=== PATIENT | female | born 1960 | race Caucasian/White ===

== ENCOUNTER 2017-07-07 14:42 | Emergency (ER) | payer SELFPAY ==
--- NOTE | 2017-07-07 16:06 | C.PDOC ---
History Of Present Illness 56 year old female presents to the ED with complaints of increased swelling and tenderness to the right labia for one week. Patient was seen in the clinic today and referred to the ER. She denies dysuria, hematuria, vaginal bleeding or discharge. Time Seen by Provider: 07/07/17 15:13 Chief Complaint (Nursing): Abnormal Skin Integrity History Per: Patient History/Exam Limitations: no limitations Onset/Duration Of Symptoms: Days (1 week ) Current Symptoms Are (Timing): Still Present Quality Of Symptoms: Painful, Swollen Recent travel outside of the [place]: No Past Medical History Reviewed: Historical Data, Nursing Documentation, Vital Signs Vital Signs: Last Vital Signs Temp 102.5 F H 07/07/17 14:47 Pulse 115 H 07/07/17 14:47 Resp 18 07/07/17 14:47 BP 128/90 07/07/17 14:47 Pulse Ox 100 07/07/17 17:55 - Medical History PMH: Hyperthyroidism Family History: States: Unknown Family Hx - Social History Hx Alcohol Use: No Hx Substance Use: No - Immunization History Hx Tetanus Toxoid Vaccination: No Hx Influenza Vaccination: No Hx Pneumococcal Vaccination: No Review Of Systems Constitutional: Negative for: Fever, Chills Cardiovascular: Negative for: Chest Pain Respiratory: Negative for: Shortness of Breath Gastrointestinal: Negative for: Nausea, Vomiting, Abdominal Pain Genitourinary: Positive for: Other (increased swelling and tenderness to right labia ). Negative for: Dysuria, Hematuria, Vaginal Discharge, Vaginal Bleeding Physical Exam - Physical Exam Appears: Non-toxic, No Acute Distress Skin: Warm, Dry Head: Atraumatic Eye(s): bilateral: Normal Inspection Oral Mucosa: Moist Neck: Supple Chest: Symmetrical, No Deformity Cardiovascular: Rhythm Regular Respiratory: Normal Breath Sounds, No Rales, No Rhonchi, No Wheezing Gastrointestinal/Abdominal: Soft, No Tenderness, No Distention, No Guarding, No Rebound Pelvic: Other (tenderness to 4 cm x 4 cm bartholin cyst with no surrounding erythema. Chaperoned by [employer] SERVIC[employer]atty. ) Extremity: Normal ROM, No Tenderness Neurological/Psych: Oriented x3, Normal Speech, Normal Cognition ED Course And Treatment O2 Sat by Pulse Oximetry: 100 (room air ) Progress Note: Patient was given Ultram. R Bartholin's Cyst drained by [employer] Massotherapist, Dr. Rondon (much appreciated) and not packed. Request Augmentin x 10 days and opt f/u 3 days. Reevaluation Time: 17:53 Reassessment Condition: Improved - Physician Consult Information Time Consulting Physician Contacted: 16:20 Physician Contacted: Heather Rondon Outcome Of Conversation: Case discussed with Dr. Rondon, she will be performing I & D. Medical Decision Making Medical Decision Making: Bartholin's Cyst R, now drained of approx 10 cc green purulent puss. Disposition Doctor Will See Patient In The: Office Counseled Patient/Family Regarding: Studies Performed, Diagnosis - Disposition Disposition: HOME/ ROUTINE Disposition Time: 17:54 Condition: GOOD Forms: [facility] (Yi) - Clinical Impression Clinical Impression: Bartholin gland cyst - Scribe Statement The provider has reviewed the documentation as recorded by the Scribe Jonelle Andre All medical record entries made by the Norbertibe were at my direction and personally dictated by me. I have reviewed the chart and agree that the record accurately reflects my personal performance of the history, physical exam, medical decision making, and the department course for this patient. I have also personally directed, reviewed, and agree with the discharge instructions and disposition.
[2017-07-07] MEDS ORDERED: Piperacillin/Tazobact 3.375 gm 100 ML IV STA (16:23)
[2017-07-07] MEDS ORDERED: Morphine 4 MG/ML VIAL ONE (16:40)
[2017-07-07] MEDS ORDERED: Piperacillin/Tazobact 3.375 gm 100 ML IVPB ONE (16:41)
[2017-07-07] MEDS ORDERED: Lidocaine 1% Inj (20ml) ONE (16:43)
[2017-07-07] MEDS ORDERED: Lidocaine 1% Inj (20ml) INFIL STA (17:03)
--- NOTE | 2017-07-07 17:22 | C.PDOC ---
History Of Present Illness 56y/o P3 LMP 2016 with vaginal pain and swelling x 1 week, evlauted at [facility] and referred to ER for evualtion of possible bartholin abscess. Pt reports c/o dyspaurenia starting 1 week ago, with vaginal pain at site. Pt reports difficlyt walking du eot disomfort. pt dneis any dysuia, urgency, freuqency, hematirua, contsipaton. pt reports feeling fever x 2 days but self resolved. P reports shvagin last week , denies any waxing and denies any previous episdoes. OB: CxS x 3 uncomplicated PRODUCTION ADMINISTRATIVE ASSISTANT: denies hx of abnormla pap last pap 2 years ago, denies hx of fibroid, ovarian cyst, STI. LMP 2016 PMH: HTN, thyroid discorder PSH: partial thyroidectomy, CXS x 3 MEDS: none NKDA SHX: negative tobacco/drugs/ etoh VS 102.5 PE: BHARATH: NAD, AAO x 3 RESP: Ctab/l CVS: RRR, +S1/S2 ABD: soft, NT/ND, no guarding, no rebound tenderness, no rigidty V:E External Genitalia: right labia majora enlarged 3x size of left + Bartholin abscess: fluctuant , mobile 4.5cm extending form 6-9pm Vagina; no blood no discharge Cervix ;no ntender Uterus; non tender Adnexa ;non tender b/l Anus/perienum: Grossly normal BEDSIDE: I+D of sympomatic bartholin cyst Procedure: Nurse adn Medical student presnt at bedside Pt examined. Verbal consent given: R/b/a/i not limtied ot infection, reoccurnce. pt advsid unable to do word cathether placement , recommend pcu rn close follow up. pt requesting I+D for sympomatic relief Area cleansed with betadine Lidocain 1cc adminstered 0.5cm mucosal incsion made Copious amount of yellow watery free flowing discharge >200cc Area cleansed adn irrigated with normal saline, unable to place packing Pressure applied, good hemostaiss, no complications Tolerated procedure well A/P 56 y/o P3 with sympomatic bartholin abscess -s/p bedside I+D -advised close pcu rn follow up in clinic wihtin 1 week -fever / pain precaution given -perineal hygeine recommened -Antbiocd x 10 days -Recommend outpatient gland excsion vs marsupilizaton vs word cathether to patient Time Seen by Provider: 07/07/17 15:13 Chief Complaint (Nursing): Abnormal Skin Integrity Past Medical History Vital Signs: Last Vital Signs Temp 102.5 F H 07/07/17 14:47 Pulse 115 H 07/07/17 14:47 Resp 18 07/07/17 14:47 BP 128/90 07/07/17 14:47 Pulse Ox 100 07/07/17 18:03 - Medical History PMH: Hyperthyroidism Family History: States: Unknown Family Hx - Social History Hx Alcohol Use: No Hx Substance Use: No - Immunization History Hx Tetanus Toxoid Vaccination: No Hx Influenza Vaccination: No Hx Pneumococcal Vaccination: No ED Course And Treatment O2 Sat by Pulse Oximetry: 100 (room air ) Disposition - Disposition Referrals: [facility] [Outside] [facility] [Outside] [facility] [Outside] Milton Shultz [Staff Provider] - Disposition: HOME/ ROUTINE Disposition Time: 18:10 Condition: IMPROVED Additional Instructions: darryn Augmentin 875 mg (antibiotico) 2 veces al aura para cumplir 10 mckeon Darryn pepcid 20 mg en la noche para prevenir irritacion' del estomago debido al Augmentin/Antibioticos Sigue Ibuprofeno/Advil/Motrin 600 mg cada 6 horas octavio necessario para dolor. Sigue con Dr. Rondon [facility] (3 mckeon). Llama para hacer courtney bee. [place] [facility]. Prescriptions: Amoxicillin/Clavulanate [Augmentin 875 MG-125 MG] 1 tab PO BID #13 tab Instructions: Excision of a Bartholin's Cyst (ED) Forms: [employer] (Georgian) Print Language: BAHAMIAN - Clinical Impression Clinical Impression: Bartholin gland cyst
[2017-07-07 18:14] VITALS: BP 101/65; PULSE 106; RESP 14; TEMP 98.2; O2SAT 96
== END 2017-07-07 18:46 | disposition home or self-care (01) ==
LOC: C.ER 14:42
DX: N75.0 Cyst of Bartholin's gland (principal)
CPT/HCPCS: 56420; 87070; 96365; 96375; 99285; J2270; J2543